=== PATIENT | male | born 1955 | race Caucasian/White ===

== ENCOUNTER 2017-05-24 15:25 | Inpatient (IN) | payer OTHER ==
--- NOTE | 2017-05-24 15:37 | CPEKG ---
Heart Rate: 60 RR Interval: 1000 P-R Interval: 192 QRSD Interval: 94 QT Interval: 388 QTC Interval: 388 P [place]: 27 QRS [place]: 20 T Wave [place]: 43 EKG Severity - NORMAL ECG - EKG Impression: SINUS RHYTHM Electronically Signed By: Vickie Tamayo 24-May-2017 22:43:18
--- NOTE | 2017-05-24 15:50 | EDPHY ---
HPI/HX/ROS/PE/MDM Narrative: CHIEF COMPLAINT: Chest pain, malaise HISTORY OF PRESENT ILLNESS: The patient is a 61 y/o male with a history of atrial fibrillation arriving with his complaining of constant anterior chest pain for the last 24 hours. His pain began while sitting and watching TV. His pain is located in a band from his RUQ to his left anterior chest, but does not radiate elsewhere. He says, "I totally feel like shit and have no energy." He has some associated nausea and has vomited twice. He also experiences oscillation between chills and feeling hot; he denies diaphoresis. He has been taking Tylenol for his pain with only minimal alleviation. Moving around and taking a deep breath worsens his pain. He denies any recent illness or cough, but he thinks he might have the flu. He denies history of blood clots. He does not take an anticoagulant and knows when he is in atrial fibrillation; he denies any recent a-fib episodes. No history of abdominal surgeries. No known gallstones. No fever, shortness of breath, palpitations, flank pain, diarrhea, urinary complaints, headache. REVIEW OF SYSTEMS: Aside from elements discussed in the HPI, a comprehensive 10-point review of systems was reviewed and is negative. PAST MEDICAL HISTORY: Atrial fibrillation (3-4 episodes/year usually associated with over-exertion), hypertension, gored by bull in August 2016 SOCIAL HISTORY: at bedside. Drinks a couple shots of alcohol on the weekends. Nonsmoker. No illicit drugs. Software Quality Tester: Dr. Calvo. VITAL SIGNS: Reviewed by me GENERAL: Overweight gentleman. Appears uncomfortable, in no respiratory distress. Reporting pain across the chest from the right upper quadrant ports the left shoulder. HEENT: Atraumatic. Eyes: No icterus, no injection. Mouth: Slightly dry mucous membranes. Dry lips. No erythema or lesions. Neck: supple with no adenopathy. LUNGS: Clear to auscultation bilaterally, no wheezes, rhonchi or rales. CHEST: No tenderness to palpation on the chest wall. No rash. CARDIAC: Regular rate and rhythm, no rubs, murmurs or gallops. ABDOMEN: Soft, LLQ, RUQ, and epigastric tenderness, nondistended, bowel sounds normal. BACK: No CVA tenderness. EXTREMITIES: No trauma. Trace bilateral lower extremity edema. Range of motion is normal throughout. NEURO: Alert and oriented, grossly nonfocal. SKIN: Warm and dry, no rash. PSYCHIATRIC: Normal mentation, no agitation. Portions of this note were transcribed by a senior medical writer. I personally performed a history, physical exam, medical decision making, and confirmed accuracy of information the transcribed note. ED Course: This is a 61 y/o male with a history of atrial fibrillation who presents with a 24-hour history of chest pain extending in a band from his RUQ to his left anterior chest with associated malaise, nausea, and chills. He has tenderness in his RUQ, epigastrium, and LLQ on palpation, though he does not specifically describe abdominal pain without palpation. His symptoms are more consistent with an infectious cause rather than cardiac. Plan for EKG, chest x-ray, symptom management, IV, and labs including troponin, d-dimer, lipase, and LFTs. PO GI cocktail and 500mL IV NS administered. The 12 lead EKG was interpreted by myself. Sinus rhythm rate 60. See hard copy and/or "tracemaster" electronic copy for interpretation. Chest x-ray: nothing acute. Labs show elevated WBC of 14.8. He is afebrile here. 1625: Patient has had no improvement in symptoms with GI cocktail. His pain is now more localized to his RUQ. Plan for RUQ ultrasound and pain management. 1mg IV Dilaudid and 500mg IV NS administered. Patient is positive for Flu A. Tamiflu ordered US: full of gallstones and debris with minimal biliary wall thickening. Surgery paged. 1807: Consulted with Dr. Ward, surgeon. He will assess patient during admission. Consult with Dr. Haylie Amin. Patient to be admitted to the hospitalist service. His constellation of symptoms and diagnosis are a bit unusual, I believe his chest discomfort is mostly related to biliary colic. [place] [address] which may represent early cholecystitis but has also influenza a positive. Patient will be evaluated by surgery while in the hospital. MDM: Differential diagnoses for the patient's symptom complex was considered including but not limited to biliary colic, GERD, reflux, pneumonia, influenza, cardiac causes, pulmonary embolism. - Data Points Imaging Results: Imaging Impressions Chest X-Ray 05/24/17 15:54 Impression: Minimal airways disease. Otherwise nothing acute. Abdomen Ultrasound 05/24/17 16:30 Impression: 1. Debris and stone filled gallbladder with scattered areas of apparent mild gallbladder wall thickening, without pericholecystic fluid, equivocal for acute cholecystitis. 2. Heterogeneous liver echotexture which could be related to fatty infiltration. Findings discussed with Vickie Tamayo MD, on 05/24/2017 at 18:03. Imaging: Discussed imaging studies w/ general ii farmworker Radiologist, I viewed and interpreted images myself Laboratory Results: Laboratory Results 05/24/17 15:37 05/24/17 15:37 05/24/17 05/24/17 05/24/17 16:31 15:46 15:37 WBC RBC Hgb Hct MCV MCH MCHC RDW Plt Count MPV Neut % (Auto) Lymph % (Auto) [place] % (Auto) Eos % (Auto) Baso % (Auto) Nucleat RBC Rel Count Absolute Neuts (auto) Absolute Lymphs (auto) Absolute Monos (auto) Absolute Eos (auto) Absolute Basos (auto) Absolute Nucleated RBC Immature Gran % Immature Gran # D-Dimer Sodium 132 mEq/L L mEq/L (134-144) Potassium 3.6 mEq/L mEq/L (3.5-5.2) Chloride 95 mEq/L L mEq/L (97-110) Carbon Dioxide 26 mEq/l mEq/l (22-31) Anion Gap 11 mEq/L mEq/L (8-16) BUN 8 mg/dL mg/dL (7-23) Creatinine 0.7 mg/dL mg/dL (0.7-1.3) Estimated GFR > 60 Glucose 91 mg/dL mg/dL (70-100) Calcium 9.6 mg/dL mg/dL (8.5-10.4) Total Bilirubin 1.2 mg/dL mg/dL (0.1-1.4) Conjugated Bilirubin 0.2 mg/dL mg/dL (0.0-0.5) Unconjugated Bilirubin 1.0 mg/dL mg/dL (0.0-1.1) AST 18 IU/L IU/L (17-59) ALT 35 IU/L IU/L (21-72) Alkaline Phosphatase 66 IU/L IU/L (38-126) Troponin I < 0.012 ng/mL ng/mL (0.000-0.034) NT-Pro-B Natriuret Pep 64 pg/mL pg/mL (0-125) Total Protein 7.0 g/dL g/dL (6.3-8.2) Albumin 4.3 g/dL g/dL (3.5-5.0) Lipase 30 IU/L IU/L (23-300) Nasal Influenza A PCR FLU A DETECTED (NEGATIVE) Nasal Influenza B PCR NEGATIVE FOR FLU B (NEGATIVE) 05/24/17 05/24/17 15:37 15:37 WBC 14.82 10^3/uL H 10^3/uL (3.80-9.50) RBC 5.28 10^6/uL 10^6/uL (4.40-6.38) Hgb 16.1 g/dL g/dL (13.7-17.5) Hct 45.5 % % (40.0-51.0) MCV 86.2 fL fL (81.5-99.8) MCH 30.5 pg pg (27.9-34.1) MCHC 35.4 g/dL g/dL (32.4-36.7) RDW 12.7 % % (11.5-15.2) Plt Count 330 10^3/uL 10^3/uL (150-400) MPV 9.0 fL fL (8.7-11.7) Neut % (Auto) 80.4 % H % (39.3-74.2) Lymph % (Auto) 11.7 % L % (15.0-45.0) Bl[place] % (Auto) 6.7 % % (4.5-13.0) Eos % (Auto) 0.3 % L % (0.6-7.6) Baso % (Auto) 0.3 % % (0.3-1.7) Nucleat RBC Rel Count 0.0 % % (0.0-0.2) Absolute Neuts (auto) 11.91 10^3/uL H 10^3/uL (1.70-6.50) Absolute Lymphs (auto) 1.74 10^3/uL 10^3/uL (1.00-3.00) Absolute Monos (auto) 0.99 10^3/uL H 10^3/uL (0.30-0.80) Absolute Eos (auto) 0.05 10^3/uL 10^3/uL (0.03-0.40) Absolute Basos (auto) 0.04 10^3/uL 10^3/uL (0.02-0.10) Absolute Nucleated RBC 0.00 10^3/uL 10^3/uL (0-0.01) Immature Gran % 0.6 % % (0.0-1.1) Immature Gran # 0.09 10^3/uL 10^3/uL (0.00-0.10) D-Dimer 0.27 ug/mLFEU ug/mLFEU (0.00-0.50) Sodium Potassium Chloride Carbon Dioxide Anion Gap BUN Creatinine Estimated GFR Glucose Calcium Total Bilirubin Conjugated Bilirubin Unconjugated Bilirubin AST ALT Alkaline Phosphatase Troponin I NT-Pro-B Natriuret Pep Total Protein Albumin Lipase Nasal Influenza A PCR Nasal Influenza B PCR Medications Given: Sodium Chloride (Ns) 1,000 mls @ 100 mls/hr IV CONT JASON Stop: 11/20/17 21:14 Last Admin: 05/24/17 21:51 Dose: 1,000 mls Oxycodone HCl (Oxycodone Ir) 5 - 10 mg PO Q4 PRN PRN Reason: Pain, Severe Able to Take PO Stop: 06/03/17 21:13 Last Admin: 05/24/17 21:45 Dose: 10 mg Discontinued Medications Acetaminophen (Tylenol) 1,000 mg PO EDNOW ONE Stop: 05/24/17 17:45 Last Admin: 05/24/17 17:54 Dose: 1,000 mg Al Hydroxide/Mg Hydroxide (Maalox Susp) 30 ml PO ONCE ONE Stop: 05/24/17 15:55 Last Admin: 05/24/17 16:01 Dose: 30 ml Hydromorphone HCl (Dilaudid) 1 mg IVP EDNOW ONE Stop: 05/24/17 16:29 Last Admin: 05/24/17 16:35 Dose: 1 mg Hyoscyamine Sulfate (Levsin, Hyomax-Sl) 0.25 mg PO ONCE ONE Stop: 05/24/17 15:55 Last Admin: 05/24/17 16:01 Dose: 0.25 mg Sodium Chloride (Ns) 500 mls @ 1,000 mls/hr IV EDNOW ONE PRN Reason: Protocol Stop: 05/24/17 16:23 Last Admin: 05/24/17 16:01 Dose: 500 mls Sodium Chloride (Ns) 1,000 mls @ 0 mls/hr IV ONCE ONE; Wide Open PRN Reason: Protocol Stop: 05/24/17 17:51 Last Admin: 05/24/17 17:58 Dose: 1,000 mls Ketorolac Tromethamine (Toradol) 30 mg IVP EDNOW ONE Stop: 05/24/17 17:44 Last Admin: 05/24/17 17:54 Dose: 30 mg Lidocaine (Lidocaine 2% Viscous) 15 ml PO ONCE ONE Stop: 05/24/17 15:55 Last Admin: 05/24/17 16:01 Dose: 15 ml Ondansetron HCl (Zofran) 4 mg IVP EDNOW ONE Stop: 05/24/17 16:30 Last Admin: 05/24/17 16:35 Dose: 4 mg Oseltamivir Phosphate (Tamiflu) 75 mg PO EDNOW ONE Stop: 05/24/17 17:52 Last Admin: 05/24/17 17:57 Dose: 75 mg General Time Seen by Provider: 05/24/17 15:33 Initial Vital Signs: Initial Vital Signs Temperature (C) 36.8 C 05/24/17 15:28 Heart Rate 64 05/24/17 15:28 Respiratory Rate 19 05/24/17 15:28 Blood Pressure 149/90 H 05/24/17 15:28 O2 Sat (%) 95 05/24/17 15:28 O2 Delivery Mode Room Air Allergies/Adverse Reactions: No Known Allergies Allergy (Unverified 05/24/17 15:26) Home Medications: Medication Instructions Recorded Aspirin [Aspirin 325 mg (*)] 325 mg PO DAILY 05/24/17 Hydrochlorothiazide 12.5 mg PO DAILY 05/24/17 [Hydrochlorothiazide] Multivitamins [Multivitamin (*)] 1 each PO DAILY 05/24/17 Propafenone HCl [Propafenone HCl] 225 mg PO TID 05/24/17 amLODIPine BESYLATE [Amlodipine 5 mg PO BID 05/24/17 Besylate] Departure - Departure Disposition: [facility] Acute Clinical Impression: RUQ pain, Influenza A, Gallstones, Biliary colic Chest pain Qualifiers: Chest pain type: other chest pain Qualified Code(s): R07.89 - Other chest pain Condition: Fair Report Scribed for: Vickie Tamayo Report Scribed by: Nirali Weldon Date of Report: 05/24/17 Time of Report: 15:50
[2017-05-24] MEDS ORDERED: LIDOCAINE 2% VISCOUS 15 ML UDCUP PO ONE (15:54)
[2017-05-24] MEDS ORDERED: NS 500 ML IV ONE (15:54)
[2017-05-24] MEDS ORDERED: HYOSCYAMINE SULFATE 0.125 MG TAB PO ONE (15:54)
[2017-05-24] MEDS ORDERED: MAG HYDROX/AL HYDROX/SIMETH 30 ML UDCUP PO ONE (15:54)
[2017-05-24 16:00] LABS: % IMMATURE GRANULYOCYTES 0.6 % (0.0-1.1); ABSOLUTE IMMATURE GRANULOCYTES 0.09 10^3/uL (0.00-0.10); ADD DIFF? NO; ADD MORPH? NO; ADD SCAN? NO; ATYPICAL LYMPHOCYTE FLAG 0 (0-99); FRAGMENT RBC FLAG 0 (0-99); HEMATOCRIT 45.5 % (40.0-51.0); HEMOGLOBIN 16.1 g/dL (13.7-17.5); LEFT SHIFT FLG 0 (0-99); LIPEMIA HEMOLYSIS FLAG 90 (0-99); MEAN CELL HEMOGLOBIN 30.5 pg (27.9-34.1); MEAN CELL HEMOGLOBIN CONCENTR. 35.4 g/dL (32.4-36.7); MEAN CELL VOLUME 86.2 fL (81.5-99.8); PLATELET CLUMPS FLAG 10 (0-99); PLATELET COUNT 330 10^3/uL (150-400); RED BLOOD CELL COUNT 5.28 10^6/uL (4.40-6.38); RED CELL DISTRIBUTION WIDTH 12.7 % (11.5-15.2)
[2017-05-24 16:10] LABS: ALANINE AMINOTRANSFERASE 35 IU/L (21-72); ALBUMIN 4.3 g/dL (3.5-5.0); ALKALINE PHOSPHATASE 66 IU/L (38-126); ANION GAP 11 mEq/L (8-16); ASPARTATE AMINOTRANSFERASE 18 IU/L (17-59); BILIRUBIN,TOTAL 1.2 mg/dL (0.1-1.4); BILIRUBIN-CONJUGATED 0.2 mg/dL (0.0-0.5); CALCIUM 9.6 mg/dL (8.5-10.4); CARBON DIOXIDE 26 mEq/l (22-31); CHLORIDE 95 mEq/L (97-110); CREATININE 0.7 mg/dL (0.7-1.3); GLOMERULAR FILTRATION RATE > 60; GLUCOSE 91 mg/dL (70-100); POTASSIUM 3.6 mEq/L (3.5-5.2); SODIUM 132 mEq/L (134-144)
[2017-05-24 16:20] LABS: TROPONIN I < 0.012 ng/mL (0.000-0.034)
[2017-05-24] MEDS ORDERED: HYDROmorphONE/DILAUDID 1 MG/ML INJ IVP ONE (16:28)
[2017-05-24] MEDS ORDERED: ONDANSETRON 4 MG/2 ML VIAL IVP ONE (16:29)
[2017-05-24] MEDS ORDERED: KETOROLAC 30 MG/1 ML SDV IVP ONE (17:43)
[2017-05-24] MEDS ORDERED: ACETAMINOPHEN 500 MG TAB PO ONE (17:44)
[2017-05-24] MEDS ORDERED: NS 1,000 ML IV ONE (17:50)
[2017-05-24] MEDS ORDERED: OSELTAMIVIR PHOSPHATE 75 MG CAP PO ONE (17:51)
[2017-05-24] MEDS ORDERED: ONDANSETRON 4 MG/2 ML VIAL IVP PRN (21:14)
[2017-05-24] MEDS ORDERED: HYDROmorphone HCL/NS/PF 0.4 MG/2 ML SYR IVP PRN (21:14)
[2017-05-24] MEDS ORDERED: PROMETHAZINE HCL 25 MG/ML INJ IVP PRN (21:14)
[2017-05-24] MEDS ORDERED: IBUPROFEN 600 MG TAB PO PRN (21:19)
[2017-05-24] MEDS ORDERED: hydrALAZINE 20 MG/ML VIAL IVP PRN (21:20)
[2017-05-24] MEDS: oxyCODONE IR 5 MG TAB PO PRN (21:45)
--- NOTE | 2017-05-24 21:47 | GHP ---
[f rep st] HISTORY AND PHYSICAL DATE OF ADMISSION: 05/24/2017 CHIEF COMPLAINT: Right upper quadrant and chest pain. HISTORY: The patient is a 61-year-old male who has been having chest pain for the last 24 hours. In itially, it started as a diagonal pain radiating from his right upper quadrant up to his left chest. It gets worse when he deep breathes and moves. The pain has really settled down into his upper abdo men and less in his chest at this time, right greater than left. He is writhing in bed very uncomfor table. Denies any fever or cough. He has recently lost 30-40 pounds intentionally. PAST MEDICAL HISTORY: 1. Atrial fibrillation. 2. Hypertension. MEDICATIONS: Please see computer record for full detailed list. ALLERGIES: No known drug allergies. SOCIAL HISTORY: No smoking. Occasional alcohol. He owns a maintenance company. Lives with his wif e. REVIEW OF SYSTEMS: Complete review of systems obtained. Review of systems negative on constitutiona l, HEENT, GI, pulmonary, cardiovascular, , hematology, skin, muscular, endocrine, psych for positiv es and negatives as in HPI. FAMILY HISTORY: Reviewed, noncontributory to presenting complaint. PHYSICAL EXAMINATION: GENERAL: Well-developed, well-nourished male, in no acute distress. VITAL SI GNS: Temperature 36.8, pulse 65, blood pressure 178/84, saturating 94% on room air. EYES: Normal c onjunctivae. Pupils react to light. ENT: Normal ears, nose. Hearing intact. Normal teeth. Oroph arynx moist. NECK: Trachea midline. No thyromegaly. CHEST: Normal effort. LUNGS: Clear to ausc ultation bilaterally. CARDIOVASCULAR: Regular rhythm. No murmur. No lower extremity edema. ABDOM EN: Soft. Some right upper quadrant tenderness to palpation without hepatosplenomegaly. SKIN: War m, dry, intact. No rash. MUSCULOSKELETAL: No cyanosis or clubbing. Strength 5/5 upper and lower e xtremities. NEUROLOGIC: Cranial nerves intact. Normal sensation to light touch. PSYCH: Alert and oriented x3. Normal affect. Normal judgment and insight. Normal memory. LABORATORY DATA: White count 14.8, hematocrit 45.5, platelets 330. Sodium 132, potassium 3.6, chlor ruddy 95, bicarb 26, BUN 8, creatinine 0.7, glucose 91. LFTs are negative. Troponins negative. D-dim er is negative. Positive for influenza A. EKG viewed by me. My personal interpretation is normal s inus rhythm, no ST-T wave changes. Chest x-ray is negative. Abdominal ultrasound shows gallstones w ith possible gallbladder wall thickening. ASSESSMENT/PLAN: 1. Influenza A. He does not have any classic symptoms for influenza but I wonder if this presenting pain may be pleurisy due to influenza A. We will continue on Tamiflu and prescribe NSAIDs as needed . 2. Gallstones. It is unclear on presentation if his pain is due to gallstones versus pleurisy from influenza. Dr. Ward seen him in consultation. I await Dr. Ward's formal consultation. Although he told the patient he is unlikely to take his gallbladder out during this hospitalization. Could consider HIDA scan if this remains unclear. 3. Hypertension. Continue Norvasc and hydrochlorothiazide. 4. Paroxysmal atrial fibrillation. Continue propafenone and aspirin. 5. Chest pain. I doubt this is cardiac. We will check another troponin in the morning. 6. Obesity. BMI 34. COR STATUS: Full. ADMISSION STATUS: Will admit to observation and reassess tomorrow whether or not he needs further in patient stay. DEEP VENOUS THROMBOSIS PROPHYLAXIS: He is high risk. Will place on subcu Lovenox. /[id number]/MODL
[2017-05-24] MEDS: NS 1,000 ML IV SCH (21:51)
[2017-05-24] MEDS: PROPAFENONE HCL 150 MG TAB PO SCH (21:53)
[2017-05-24] MEDS: CALCIUM CARBONATE 500 MG CHEWABLE TAB PO PRN (22:22)
[2017-05-25] MEDS: oxyCODONE IR 5 MG TAB PO PRN (02:57)
--- NOTE | 2017-05-25 04:58 | GCON ---
[f rep st] CONSULTATION DATE OF CONSULTATION: 05/24/2017 CHIEF COMPLAINT: Chest pain and fatigue. HISTORY OF PRESENT ILLNESS: This is a 61-year-old male who presents to the emergency department with a [id number] history of chest pain and fatigue. He states that the fatigue has been going on for the past few days, and he felt as though he had the flu. The chest pain is new. He describes it as a tightening in the central portion of his chest which radiates to his left shoulder and down into his right abdomen. It is unclear as to what precipitated this, but he stated that the pain has been getting worse over a couple days, which prompted his presentation here. In the emergency department , he had a full cardiac workup and does not appear to be having an acute myocardial infarction, however, was also found to be positive for influenza A and does have a history of AFib, status post ablation procedure, so does, indeed , have a cardiac history, at any rate, has been admitted to the medical service. I was asked to see the patient to weigh in on his abdominal pain. He had an ultrasound which shows a gallbladder which has many layering stones and sludge within it but without any other signs of cholecystitis. On my examination, he complains still of chest tenderness, did try to eat some crackers downstairs, which worsened this pain. He denies nausea or vomiting and has never had episodes like this in the past. PAST MEDICAL HISTORY: Atrial fibrillation, status post ablation procedure, hypertension, and a run-in with a bull in August of this year where it sounds like he was gored. SURGICAL HISTORY: He has had a spinal fusion but denies having any abdominal surgeries in the past. FAMILY HISTORY: Noncontributory. SOCIAL HISTORY: Drinks occasionally, denies illicit drug use, and is . REVIEW OF SYSTEMS: A 10-point comprehensive review was performed and, unless stated above, is otherwise negative. PHYSICAL EXAMINATION: VITAL SIGNS: Temperature 36.9, blood pressure 178/84, heart rate 65, and he is 94% on room air. CONSTITUTIONAL: He is in no apparent distress. He appears comfortable and tired. EYES: His pupils are equal, round, and reactive to light and accommodation. His extraocular movements are intact, and his sclerae are anicteric. EARS, NOSE, MOUTH, AND THROAT: He has dry mucous membranes. His hearing is normal. His ears appear normal, and he has no mucosal ulcers. CARDIOVASCULAR: He appears to be in sinus rhythm. He does not have any murmurs appreciable. RESPIRATORY: He has no respiratory distress. No rales or rhonchi, and he is otherwise clear to auscultation. GI: He has good normoactive bowel sounds. He is soft, minimally tender in the epigastrium without rebound tenderness and a negative Hudson sign. SKIN: Warm, normal color, without rashes. MUSCULOSKELETAL: Full strength. No tenderness. Normal joint range of motion. NEUROLOGIC: He is alert and oriented x3. Again, he is tired. Cranial nerves 2 through 12 appear intact. He has no weakness or numbness. PSYCH: He is interacting appropriately. He does not appear anxious or encephalopathic. LYMPH/HEME/ IMMUNOLOGIC: He has no cervical, groin, or supraclavicular lymphadenopathy. LABORATORIES: Leukocytosis to 14,000 with a left shift. H and H stable at 16 and 45. Chemistries are unremarkable. His liver function enzymes are all within normal limits. His troponin is negative. Ultrasound of the right upper quadrant, the images of which were personally reviewed by me, shows, for the most part, a normal gallbladder wall, but the gallbladder appears to be stone filled. There is no pericholecystic fluid. There are maybe areas were the gallbladder wall is thick but equivocal. He has a positive influenza A. ASSESSMENT AND PLAN: 61-year-old male with chest and abdominal pain, also with active influenza A, possible biliary colic. On my examination, again, the patient continues to describe chest tenderness. His symptoms are not classic cholecystitis or biliary colic symptoms as he has never had issues in the past. They do not seem to be precipitated by food, and most of the symptoms seem to be cardiac in nature, although it does not appear he is having an acute myocardial infarction. At this juncture, he has multiple other problems which trump his biliary colic as I do not appreciate any signs for cholecystitis clinically at this time. First of all, I think the patient needs a completed cardiac workup. Second of all, a lot of these symptoms could be explained by his acute influenza infection, and I would like him to heal appropriately from this. My plan would be to have the medical service clear him from a cardiac standpoint, and if he feels better and he can eat, would plan to discharge him home so he can convalesce from his influenza with followup with me. I do anticipate that he either has had or will have biliary colic-type symptoms in the future given his ultrasound but do not appreciate any signs that would require him to have urgent cholecystectomy in the next 24 hours, so ideally he would heal from his influenza before I take him to the operating room, which could happen within the next few weeks. /[id number]/MODL MTDD
[2017-05-25 05:55] LABS: % IMMATURE GRANULYOCYTES 0.5 % (0.0-1.1); ABSOLUTE IMMATURE GRANULOCYTES 0.08 10^3/uL (0.00-0.10); ADD DIFF? NO; ADD MORPH? NO; ADD SCAN? NO; ATYPICAL LYMPHOCYTE FLAG 0 (0-99); FRAGMENT RBC FLAG 0 (0-99); HEMATOCRIT 42.7 % (40.0-51.0); HEMOGLOBIN 15.2 g/dL (13.7-17.5); LEFT SHIFT FLG 0 (0-99); LIPEMIA HEMOLYSIS FLAG 90 (0-99); MEAN CELL HEMOGLOBIN 30.8 pg (27.9-34.1); MEAN CELL HEMOGLOBIN CONCENTR. 35.6 g/dL (32.4-36.7); MEAN CELL VOLUME 86.6 fL (81.5-99.8); MEAN PLATELET VOLUME 9.2 fL (8.7-11.7); PLATELET CLUMPS FLAG 40 (0-99); PLATELET COUNT 290 10^3/uL (150-400); RED BLOOD CELL COUNT 4.93 10^6/uL (4.40-6.38); RED CELL DISTRIBUTION WIDTH 12.7 % (11.5-15.2)
[2017-05-25 06:07] LABS: ANION GAP 8 mEq/L (8-16); CALCIUM 8.7 mg/dL (8.5-10.4); CARBON DIOXIDE 26 mEq/l (22-31); CHLORIDE 97 mEq/L (97-110); CREATININE 0.6 mg/dL (0.7-1.3); GLOMERULAR FILTRATION RATE > 60; GLUCOSE 117 mg/dL (70-100); POTASSIUM 3.9 mEq/L (3.5-5.2); SODIUM 131 mEq/L (134-144)
[2017-05-25 06:17] LABS: TROPONIN I < 0.012 ng/mL (0.000-0.034)
--- NOTE | 2017-05-25 07:32 | SOAPPROG ---
SOAP Progress Note Assessment/Plan: Assessment/Plan: 61yo M c influenza, CP, biliary colic - has some abdominal pain today which is new. Described as muscular pain and he feels like he "slept on it wrong" - overall looks better. Would attempt to PO challenge and if tolerates would dc and follow up as outpatient for outpatient bruce when convalesces from flu infection 05/25/17 07:30 Subjective: had a good night, chest pain appears to have resolved Objective: Vital Signs Temp Pulse Resp BP Pulse Ox 36.9 C 69 30 H 145/84 H 93 05/25/17 07:23 05/25/17 07:23 05/25/17 07:23 05/25/17 07:23 05/25/17 07:23 Laboratory Results 05/25/17 05:25 05/25/17 05:25 05/24/17 05/25/17 05/26/17 05:59 05:59 05:59 Intake Total 2100 Output Total 400 Balance 1700 ICD10 Worksheet Patient Problems: Problems Problem Status Onset Biliary colic Acute Chest pain Acute Gallstones Acute Influenza A Acute RUQ pain Acute
[2017-05-25] MEDS: NS 1,000 ML IV SCH (07:53)
[2017-05-25] MEDS: HYDROCHLOROTHIAZIDE 25 MG TAB PO SCH (07:54)
[2017-05-25] MEDS: PROPAFENONE HCL 150 MG TAB PO SCH ×3 (07:55→21:03)
[2017-05-25] MEDS: amLODIPine BESYLATE 5 MG TAB PO SCH ×2 (07:56→21:03)
[2017-05-25] MEDS: ASPIRIN 325 MG TAB PO SCH (07:56)
[2017-05-25] MEDS: ENOXAPARIN 40 MG/0.4 ML SYR SC SCH (07:57)
[2017-05-25] MEDS: OSELTAMIVIR PHOSPHATE 75 MG CAP PO SCH ×2 (07:57→16:53)
--- NOTE | 2017-05-25 08:54 | CPEKG ---
Heart Rate: 70 RR Interval: 857 P-R Interval: 176 QRSD Interval: 86 QT Interval: 348 QTC Interval: 376 P [place]: 35 QRS [place]: 29 T Wave [place]: 27 EKG Severity - NORMAL ECG - EKG Impression: SINUS RHYTHM Electronically Signed By: Jose Chavez 26-May-2017 13:13:16
--- NOTE | 2017-05-25 11:11 | ASMTCASEMG ---
Living Arrangements What is your living Answers: With Spouse arrangement? Who do you live with? Type Of Residence What kind of residence do Answers: House you live in? Discharge Plan Comments Coordination Status Comments Notes: Patient is a 61yo male who was admitted for chest pain and abdominal pain. Most likely abdominal pain is from influenza A and/or gallstones. No therapies ordered at this time. D/C needs TBD. CM will follow. Date Signed: 05/25/2017 11:11 AM Electronically Signed By:Gisselle Parekh LCSW
[2017-05-25] MEDS: ACETAMINOPHEN 325 MG TAB PO PRN (12:56)
--- NOTE | 2017-05-25 13:24 | HOSPPROG ---
Hospitalist Progress Note Assessment/Plan: Patient is a 61-year-old male who is been having chest pain for approximately 24 hr. It gets worse when he deep breathes and moves. Today is my 1st encounter with the patient. Chart reviewed. * influenza a -continue Tamiflu and supportive care * leukocytosis -secondary to this *Hyponatremia -eating and drinking well -repeat labs in a.m. * gallstones with biliary colic -further followup with surgery once he resolves the flu -patient is extremely tender in ruq area/ patient has some guarding -appreciate surgery following * paroxysmal atrial fibrillation -on aspirin and propafenone * obesity with a BMI of 34 * chest pain -trops negative x2 -this has resolved -in sinus rhythm/ has a hx of afib *Plan: Patient require another midnight stay. He is extremely tenderness right upper quadrant area. In addition he has ongoing headaches and elevated white blood cell count. This will make him inpatient stay. Will get repeat labs in the morning Subjective: Ray isn't feeling well today. Objective: Vital Signs Temp Pulse Resp BP Pulse Ox 36.6 C 75 28 H 143/80 H 94 05/25/17 12:00 05/25/17 12:00 05/25/17 12:00 05/25/17 12:00 05/25/17 12:00 Laboratory Results 05/25/17 05:25 05/25/17 05:25 05/24/17 05/25/17 05/26/17 05:59 05:59 05:59 Intake Total 2100 Output Total 400 Balance 1700 - Physical Exam Constitutional: obese, uncomfortable, No not in pain (ruq) Eyes: PERRL Ears, Nose, Mouth, Throat: hearing normal Cardiovascular: regular rate and rhythym Respiratory: no respiratory distress Gastrointestinal: normoactive bowel sounds, tenderness (ruq), guarding Skin: warm Musculoskeletal: full muscle strength Neurologic: AAOx3 Psychiatric: interacting appropriately ICD10 Worksheet Patient Problems: Problems Problem Status Onset Biliary colic Acute Chest pain Acute Gallstones Acute Influenza A Acute RUQ pain Acute
--- NOTE | 2017-05-25 15:56 | PDMN ---
Medical Necessity Medical necessity: GRG systemic condition : influenza A -1 day: influenza with CP, leukocytosis, hyponatremia, with gallstones and biliary colic, -pt is extremely tender in RUQ, /guarding, BARNES, repeat Labs in am -cont care > 2 midnights.
[2017-05-26 06:21] LABS: % IMMATURE GRANULYOCYTES 0.5 % (0.0-1.1); ABSOLUTE IMMATURE GRANULOCYTES 0.07 10^3/uL (0.00-0.10); ADD DIFF? NO; ADD MORPH? NO; ADD SCAN? NO; ATYPICAL LYMPHOCYTE FLAG 0 (0-99); FRAGMENT RBC FLAG 0 (0-99); HEMATOCRIT 42.1 % (40.0-51.0); HEMOGLOBIN 14.6 g/dL (13.7-17.5); LEFT SHIFT FLG 0 (0-99); LIPEMIA HEMOLYSIS FLAG 90 (0-99); MEAN CELL HEMOGLOBIN 30.6 pg (27.9-34.1); MEAN CELL HEMOGLOBIN CONCENTR. 34.7 g/dL (32.4-36.7); MEAN CELL VOLUME 88.3 fL (81.5-99.8); MEAN PLATELET VOLUME 9.4 fL (8.7-11.7); PLATELET CLUMPS FLAG 10 (0-99); PLATELET COUNT 274 10^3/uL (150-400); RED BLOOD CELL COUNT 4.77 10^6/uL (4.40-6.38)
[2017-05-26 06:45] LABS: ALANINE AMINOTRANSFERASE 39 IU/L (21-72); ALBUMIN 3.2 g/dL (3.5-5.0); ALKALINE PHOSPHATASE 59 IU/L (38-126); ANION GAP 10 mEq/L (8-16); ASPARTATE AMINOTRANSFERASE 19 IU/L (17-59); BILIRUBIN,TOTAL 1.9 mg/dL (0.1-1.4); CALCIUM 8.8 mg/dL (8.5-10.4); CARBON DIOXIDE 29 mEq/l (22-31); CHLORIDE 98 mEq/L (97-110); CREATININE 0.8 mg/dL (0.7-1.3); GLOMERULAR FILTRATION RATE > 60; GLUCOSE 88 mg/dL (70-100); POTASSIUM 3.5 mEq/L (3.5-5.2); SODIUM 137 mEq/L (134-144); TOTAL PROTEIN 5.5 g/dL (6.3-8.2)
[2017-05-26] MEDS: HYDROCHLOROTHIAZIDE 25 MG TAB PO SCH (08:34)
[2017-05-26] MEDS: ASPIRIN 325 MG TAB PO SCH (08:34)
[2017-05-26] MEDS: amLODIPine BESYLATE 5 MG TAB PO SCH ×2 (08:35→21:04)
[2017-05-26] MEDS: PROPAFENONE HCL 150 MG TAB PO SCH ×3 (08:35→21:04)
[2017-05-26] MEDS: OSELTAMIVIR PHOSPHATE 75 MG CAP PO SCH ×2 (08:36→17:30)
[2017-05-26] MEDS: ENOXAPARIN 40 MG/0.4 ML SYR SC SCH (08:36)
--- NOTE | 2017-05-26 12:49 | HOSPPROG ---
Hospitalist Progress Note Assessment/Plan: Patient is a 61-year-old male who had been having chest pain for approximately 24 hr. It gets worse when he deep breathes and moves. Today is my 1st encounter with the patient. Chart reviewed. * influenza a -continue Tamiflu and supportive care -looks much better * leukocytosis -multifactorial -stable *Hyponatremia -eating and drinking well -resolved * gallstones with biliary colic -further followup with surgery once he resolves the flu -appreciate surgery following -possible intervention if surgery decides * paroxysmal atrial fibrillation -on aspirin and propafenone * obesity with a BMI of 34 * chest pain -trops negative x2 -this has resolved -in sinus rhythm/ has a hx of afib *Plan: Await surgery recs Subjective: Up in the chair. Feels well. Objective: Vital Signs Temp Pulse Resp BP Pulse Ox 36.5 C 74 20 117/70 93 05/26/17 11:31 05/26/17 11:31 05/26/17 11:31 05/26/17 11:31 05/26/17 11:31 Laboratory Results 05/26/17 05:40 05/26/17 05:40 05/25/17 05/26/17 05/27/17 05:59 05:59 05:59 Intake Total 1000 Output Total 1400 Balance -400 - Physical Exam Constitutional: appears nourished, not in pain, obese Eyes: PERRL, anicteric sclera, EOMI Ears, Nose, Mouth, Throat: moist mucous membranes, hearing normal, ears appear normal Cardiovascular: No JVD, No tachycardia, No edema Respiratory: no respiratory distress, no rales or rhonchi, reduced air movement Gastrointestinal: tenderness, No ascites, No guarding Skin: warm, normal color, No erythema Musculoskeletal: normal joint ROM, no joint effusions, generalized weakness Neurologic: AAOx3 Psychiatric: interacting appropriately, not anxious, not encephalopathic ICD10 Worksheet Patient Problems: Problems Problem Status Onset Chest pain Acute RUQ pain Acute Influenza A Acute Gallstones Acute Biliary colic Acute
--- NOTE | 2017-05-26 12:57 | SOAPPROG ---
DAGOBERTO Progress Note Assessment/Plan: Assessment/Plan: 61yo M c influenza, CP, biliary colic - RUQ pain persists, although maybe a little better today. Still think that he would benefit from lap bruce this admission. - Will stop by this afternoon and if he is side seam tender will plan for OR tomorrow if he is amenable 05/25/17 07:30 05/26/17 12:56 Subjective: still a little tender but overall feeling better Objective: Vital Signs Temp Pulse Resp BP Pulse Ox 36.5 C 74 20 117/70 93 05/26/17 11:31 05/26/17 11:31 05/26/17 11:31 05/26/17 11:31 05/26/17 11:31 Laboratory Results 05/26/17 05:40 05/26/17 05:40 05/25/17 05/26/17 05/27/17 05:59 05:59 05:59 Intake Total 1000 Output Total 1400 Balance -400 ICD10 Worksheet Patient Problems: Problems Problem Status Onset Biliary colic Acute Chest pain Acute Gallstones Acute Influenza A Acute RUQ pain Acute
[2017-05-27] MEDS: ASPIRIN 325 MG TAB PO SCH (09:32)
[2017-05-27] MEDS: ENOXAPARIN 40 MG/0.4 ML SYR SC SCH (09:33)
[2017-05-27] MEDS: OSELTAMIVIR PHOSPHATE 75 MG CAP PO SCH ×2 (09:43→18:17)
[2017-05-27] MEDS: HYDROCHLOROTHIAZIDE 25 MG TAB PO SCH (09:43)
[2017-05-27] MEDS: amLODIPine BESYLATE 5 MG TAB PO SCH ×2 (09:43→21:35)
[2017-05-27] MEDS: PROPAFENONE HCL 150 MG TAB PO SCH ×3 (09:48→21:35)
[2017-05-27] MEDS ORDERED: LR 1,000 ML IV ONE (13:11)
[2017-05-27] MEDS ORDERED: ceFAZolin 2 GM/SWFI 2 GM/20 ML SYR IVP ONE (13:36)
--- NOTE | 2017-05-27 13:36 | PDHPUP ---
History & Physical Update H&P update statement: This history and physical update is based on an assessment of the patient which was completed after admission or registration (within 24 hours), but prior to the surgery/procedure. H&P update: H&P reviewed & patient examined, no change in patient's condition since H&P completed
--- NOTE | 2017-05-27 13:54 | HOSPPROG ---
Hospitalist Progress Note Assessment/Plan: Patient is a 61-year-old male who had been having chest pain for approximately 24 hr. It gets worse when he deep breathes and moves. * influenza a -continue Tamiflu and supportive care -looks much better * leukocytosis -multifactorial -stable *Hyponatremia -eating and drinking well -resolved * gallstones with biliary colic -further followup with surgery once he resolves the flu -appreciate surgery following -possible intervention if surgery decides * paroxysmal atrial fibrillation -on aspirin and propafenone * obesity with a BMI of 34 * chest pain -trops negative x2 -this has resolved -in sinus rhythm/ has a hx of afib *Plan: to OR today possible home 1-2 days if doing better Subjective: Feels well. Waiting for surgery. Objective: Vital Signs Temp Pulse Resp BP Pulse Ox 36.9 C 65 16 103/69 93 05/27/17 11:38 05/27/17 11:38 05/27/17 11:38 05/27/17 11:38 05/27/17 11:38 Laboratory Results 05/26/17 05:40 05/26/17 05:40 05/26/17 05/27/17 05/28/17 05:59 05:59 05:59 Intake Total 1000 450 Output Total 1400 Balance -400 450 - Physical Exam Constitutional: no apparent distress, not in pain Eyes: PERRL, anicteric sclera Ears, Nose, Mouth, Throat: moist mucous membranes, hearing normal Cardiovascular: No JVD, No edema Respiratory: no respiratory distress, reduced air movement Gastrointestinal: No tenderness, No ascites Skin: warm, normal color Musculoskeletal: full muscle strength, no joint effusions Neurologic: AAOx3 Psychiatric: interacting appropriately, not anxious, not encephalopathic ICD10 Worksheet Patient Problems: Problems Problem Status Onset Chest pain Acute RUQ pain Acute Influenza A Acute Gallstones Acute Biliary colic Acute
[2017-05-27] MEDS ORDERED: BUPIVACAINE 0.25% 30 ML SDV ONE (13:58)
[2017-05-27] MEDS ORDERED: IOPAMIDOL (ISOVUE-M 300) 15 ML VIAL ONE (13:59)
[2017-05-27] MEDS ORDERED: PROPOFOL 200 MG/20 ML VIAL ONE ×2 (14:04)
[2017-05-27] MEDS ORDERED: fentaNYL 250 MCG/5 ML INJ ONE (14:04)
[2017-05-27] MEDS ORDERED: ROCURONIUM 50 MG/5 ML VIAL ONE ×2 (14:06→15:46)
[2017-05-27] MEDS ORDERED: LIDOCAINE 2% 5 ML SDV ONE (14:07)
[2017-05-27] MEDS ORDERED: ONDANSETRON 4 MG/2 ML VIAL ONE (14:08)
[2017-05-27] MEDS ORDERED: SUGAMMADEX SODIUM 200 MG/2 ML VIAL IVP ONE (14:08)
[2017-05-27] MEDS ORDERED: KETOROLAC 30 MG/1 ML SDV ONE (14:08)
[2017-05-27] MEDS ORDERED: DEXAMETHASONE 4 MG/ML VIAL ONE (14:08)
[2017-05-27] MEDS ORDERED: MIDAZOLAM 2 MG/2 ML VIAL ONE (14:09)
[2017-05-27] MEDS ORDERED: MIDAZOLAM 2 MG/2 ML VIAL IVP ONE (14:15)
--- NOTE | 2017-05-27 14:17 | PDANEPAE ---
ANE History of Present Illness epigastric/abd pain; w/u negative for cardiac etiology ANE Past Medical History - Cardiovascular History Hx Hypertension: Yes Hx Arrhythmias: Yes Hx Chest Pain: No Hx Coronary Artery / Peripheral Vascular Disease: No Hx CHF / Valvular Disease: No Hx Palpitations: No - Pulmonary History Hx COPD: No Hx Asthma/Reactive Airway Disease: No Hx Recent Upper Respiratory Infection: No Hx Oxygen in Use at Home: No Hx Sleep Apnea: No Sleep Apnea Screening Result - Last Documented: Positive - Endocrine History Hx Diabetes: No Hypothyroid: No Obesity: yes, moderate - Chronic Pain History Chronic Pain: No ANE Review of Systems Review of systems is: negative Review of Systems: - Exercise capacity Exercise capacity: >=4 METS ANE Patient History - Allergies Allergies/Adverse Reactions: No Known Allergies Allergy (Unverified 05/24/17 15:26) - Home Medications Home medications: home medication list seen and reviewed Home Medications: Aspirin [Aspirin 325 mg (*)] 325 mg PO DAILY 05/24/17 [Last Taken 05/24/17] Hydrochlorothiazide [Hydrochlorothiazide] 12.5 mg PO DAILY 05/24/17 [Last Taken 05/24/17] Multivitamins [Multivitamin (*)] 1 each PO DAILY 05/24/17 [Last Taken 05/24/17] Propafenone HCl [Propafenone HCl] 225 mg PO TID 05/24/17 [Last Taken 05/24/17 12 :00] amLODIPine BESYLATE [Amlodipine Besylate] 5 mg PO BID 05/24/17 [Last Taken 05/24] - NPO status NPO Since - Liquids (Date): 05/27/17 NPO Since - Liquids (Time): 00:05 NPO Since - Solids (Date): 05/27/17 NPO Since - Solids (Time): 00:05 - Smoking Hx Smoking Status: Never smoked ANE Labs/Vital Signs - Labs Result Diagrams: 05/26/17 05:40 05/26/17 05:40 - Vital Signs Blood Pressure: 103/69 Heart Rate: 65 Respiratory Rate: 16 O2 Sat (%): 93 Height: 175.26 cm Weight: 106.594 kg ANE Physical Exam - Airway Neck exam: FROM Mallampati Score: Class 2 Mouth exam: normal dental/mouth exam - Pulmonary Pulmonary: no respiratory distress - Cardiovascular Cardiovascular: regular rate and rhythym - ASA Status ASA Status: III ANE Anesthesia Plan Anesthesia Plan: general endotracheal anesthesia Specialized Airway: video laryngoscope
[2017-05-27] MEDS ORDERED: OXYCODONE/APAP 5/325 TAB PO PRN (14:50)
[2017-05-27] MEDS ORDERED: NALOXONE HCL 0.4 MG/ML INJ IVP PRN (14:50)
[2017-05-27] MEDS ORDERED: ALBUTEROL 3 ML DEYVIAL IH PRN (14:50)
[2017-05-27] MEDS ORDERED: HYDROCODONE/APAP 5/325 TAB PO PRN (14:50)
[2017-05-27] MEDS ORDERED: ACETAMINOPHEN 500 MG TAB PO PRN (14:50)
[2017-05-27] MEDS ORDERED: fentaNYL 100 MCG/2 ML INJ IVP PRN (14:50)
[2017-05-27] MEDS ORDERED: ONDANSETRON 4 MG/2 ML VIAL IVP PRN (14:50)
[2017-05-27] MEDS ORDERED: PROMETHAZINE HCL 25 MG/ML INJ IVP PRN (14:50)
[2017-05-27] MEDS ORDERED: METOCLOPRAMIDE 10 MG/2 ML VIAL IVP PRN (14:50)
[2017-05-27] MEDS ORDERED: fentaNYL 100 MCG/2 ML INJ ONE (15:33)
--- NOTE | 2017-05-27 16:36 | POSTOPPROG ---
Post Op Note Date of Operation: 05/27/17 Surgeon: Siva Ward Video Game Tester: Zenon Anesthesiologist: Leonie Anesthesia: GET(General Endotracheal) Pre-op Diagnosis: Cholecystitis Post-op Diagnosis: gangrenous cholecystitis Procedure: Lap bruce Findings: very inflamed wall, many stones within GB Inf/Abcess present in the surg proc area at time of surgery?: No EBL: 50-100 Total fluids administered: 2000cc washout Drains: Ranjit Urbina Specimen(s): GB
[2017-05-27] MEDS ORDERED: HYDROmorphONE/DILAUDID 1 MG/ML INJ ONE (16:50)
[2017-05-27] MEDS: HYDROmorphONE/DILAUDID 1 MG/ML INJ IVP PRN ×4 (16:58→17:37)
--- NOTE | 2017-05-27 17:20 | POSTANESTH ---
Post Anesthetic Evaluation Cardiovascular Status: Normal, Stable Respiratory Status: Normal, Stable Level of Consciousness/Mental Status: Can Participate in Eval Pain Control: Adequate, Prn Tx Ordered Nausea/Vomiting Control: Adequate, Prn Tx Ordered Complications Possibly Related to Anesthesia: None Noted
[2017-05-27] MEDS: oxyCODONE IR 5 MG TAB PO PRN ×2 (18:23→22:40)
--- NOTE | 2017-05-27 18:46 | GOP ---
[f rep st] OPERATIVE REPORT DATE OF OPERATION: 05/27/2017 SURGEON: Siva Ward MD WATER MECHANIC: Zenon ANESTHESIA: General endotracheal. ANESTHESIOLOGIST: Stephan Hadley MD PREOPERATIVE DIAGNOSIS: Acute cholecystitis. POSTOPERATIVE DIAGNOSIS: Acute gangrenous cholecystitis. PROCEDURE PERFORMED: Laparoscopic cholecystectomy. FINDINGS: Inflamed, edematous gallbladder wall. Very difficult dissection. Stapled cystic duct at infundibulum with SAMEERA 45 blue load. SPECIMENS: Gallbladder. ESTIMATED BLOOD LOSS: 50 cc. DESCRIPTION OF PROCEDURE: The patient was greeted in the preoperative suite. Once again, risks, jamaal efits, and alternatives were discussed. He was then brought back to the operative suite, placed on t he OR table in the supine position. After all anesthesia machines, including SCDs, were on and funct ioning, World Health Organization time-out was performed. Antibiotics were given on-call to the oper ating room. After successful induction of general anesthesia, the patient's abdomen was prepped and draped in the typical sterile fashion. I entered the abdomen via an infraumbilical cutdown through w hich the Veress needle was passed. I achieved pneumoperitoneum to 15 mmHg CO2, which was well tolera lukasz by the patient. Through this, I inserted a Visiport 10 mm. Once successfully in the abdomen, I inserted 3 additional 5 mm trocars, 1 in the subxiphoid, 2 in the right upper quadrant. I was unable initially to retract the dome of the gallbladder over the liver edge. I successfully drained it and I ended up making a small cholecystotomy while doing this. I did not see any stones spill from this . After draining this, I successfully retracted it upwards; however, the infundibulum of the [facility] dder was significantly inflamed and edematous. I instead decided to do a top-down approach and start ing at the base of the gallbladder headed toward the infundibulum. I took the gallbladder off the li torri bed using the Harmonic Scalpel. Once in the infundibulum and I had successfully taken the cystic artery with the Harmonic Scalpel, I attempted to skeletonize the remainder of the structures there. This was difficult given the friability and bleeding. I upsized my subxiphoid port. I identified t he common bile duct deep to my dissection and successfully amputated the gallbladder off the cystic d uct using a single fire of the 45 blue load stapler. I then removed the gallbladder. After removal, I turned my attention toward the cystic duct stump. It did not appear completely intact. Using bot h an 0 PDS and 0 Vicryl Endoloop, I successfully closed the remainder of the cystic duct. I then irr igated the right upper quadrant with 2 L normal saline noting clear effluent in the suction canister. Hemostasis was good within the liver bed. I did use Geremias in the liver bed to ensure that hemosta sis was appropriate. I then placed a 10-Spanish flat CARIN within the gallbladder bed, brought it out th rough my right-most port site and attached it to the skin with a nylon suture. I then infiltrated lo lucio anesthesia into all port sites. Once again, I inspected my Endoloops which were in appropriate p osition and the liver bed which was hemostatic. I then evacuated my pneumoperitoneum. The subxiphoi d port which I had to upsize for my stapler, I successfully closed with a running 0 Vicryl stitch not ing excellent fascial reapproximation. In the same fashion, I closed the infraumbilical port site as well. Skin was then closed with running 4-0 Monocryl over which Mastisol and Steri-Strips were plac ed. The patient was then extubated in the operative suite and taken to the PACU in satisfactory cond ition. DRAINS: Ten-Spanish flat CARIN in right upper quadrant. COUNTS: All counts were reported as correct x2. /[id number]/MODL
[2017-05-27] MEDS: CALCIUM CARBONATE 500 MG CHEWABLE TAB PO PRN (21:35)
[2017-05-28 05:12] VITALS: RESP 16
[2017-05-28] MEDS: ACETAMINOPHEN 325 MG TAB PO PRN ×2 (05:30→13:13)
[2017-05-28] MEDS: CALCIUM CARBONATE 500 MG CHEWABLE TAB PO PRN (05:30)
[2017-05-28] MEDS: PROPAFENONE HCL 150 MG TAB PO SCH (08:58)
[2017-05-28] MEDS: ASPIRIN 325 MG TAB PO SCH (08:59)
[2017-05-28] MEDS: ENOXAPARIN 40 MG/0.4 ML SYR SC SCH (08:59)
[2017-05-28] MEDS: amLODIPine BESYLATE 5 MG TAB PO SCH (08:59)
[2017-05-28] MEDS: HYDROCHLOROTHIAZIDE 25 MG TAB PO SCH (08:59)
[2017-05-28] MEDS: OSELTAMIVIR PHOSPHATE 75 MG CAP PO SCH (09:00)
--- NOTE | 2017-05-28 10:28 | HOSPPROG ---
Hospitalist Progress Note Assessment/Plan: Patient is a 61-year-old male who is been having chest pain for approximately 24 hr. It gets worse when he deep breathes and moves. * influenza a -continue Tamiflu and supportive care * leukocytosis -secondary to this *Hyponatremia -eating and drinking well -repeat labs in a.m. * acute gangrenous cholecystitis -status post laparoscopic cholecystectomy -patient doing well this morning * paroxysmal atrial fibrillation -on aspirin and propafenone * obesity with a BMI of 34 * chest pain -trops negative x2 -this has resolved -in sinus rhythm/ has a hx of afib *Plan: Will discuss with surgery about possible discharge today. Will also asked them about treating with antibiotics. The patient does not appear acutely ill at this time and looks markedly improved compared to when I saw him the other day Subjective: Ray said he is feeling fine today. Has no complaints. Objective: Vital Signs Temp Pulse Resp BP Pulse Ox 36.4 C 72 16 150/80 H 89 L 05/28/17 07:52 05/28/17 07:52 05/28/17 07:52 05/28/17 07:52 05/28/17 07:52 Laboratory Results 05/26/17 05:40 05/26/17 05:40 05/27/17 05/28/17 05/29/17 05:59 05:59 05:59 Intake Total 450 1550 Output Total 250 20 Balance 450 1300 -20 - Physical Exam Constitutional: appears nourished, not in pain, obese Eyes: PERRL Ears, Nose, Mouth, Throat: hearing normal Cardiovascular: regular rate and rhythym Respiratory: no respiratory distress Gastrointestinal: normoactive bowel sounds Skin: warm Musculoskeletal: full muscle strength Neurologic: AAOx3 Psychiatric: interacting appropriately, flat affect ICD10 Worksheet Patient Problems: Problems Problem Status Onset Biliary colic Acute Chest pain Acute Gallstones Acute Influenza A Acute RUQ pain Acute
[2017-05-28 11:53] VITALS: BP 109/77; PULSE 93; TEMP 98.4; O2SAT 93
--- NOTE | 2017-05-28 16:06 | GDS ---
[f rep st] DISCHARGE SUMMARY DISCHARGE DIAGNOSES: 1. Influenza A. 2. Leukocytosis secondary to this. 3. Acute gangrenous cholecystitis. 4. Hyponatremia. 5. Paroxysmal atrial fibrillation. 6. Obesity with a BMI of 34. 7. An episode of chest pain. CONSULTATION: Siva Ward MD. HISTORY: Briefly, Alexys Molina is a 61-year-old gentleman who presented to the emergency room with ches t pain for 24 hours. It started as a diagonal pain radiating from his right upper quadrant to his le ft chest area and was worse when he deep breathed. He was checked for influenza and noted to be posi tive. Also, he was having significant pain. It was noted that he had gallstones. He was evaluated by Dr. Ward, who ultimately did surgery, removing his gallbladder that was gangrenous. Through out his stay he improved. He will be discharged home and further follow up with Dr. Siva Ward in the outpatient setting. HOSPITAL COURSE: 1. Influenza A. He will be on Tamiflu for 4 more doses. 2. Leukocytosis. Improved. 3. Acute gangrenous cholecystitis. He is status post laparoscopic cholecystectomy. He is doing torri y well since having surgery. 4. Hyponatremia. Resolved. 5. Paroxysmal atrial fibrillation. He is on aspirin and propafenone .. 6. Obesity. He has a BMI of 34. 7. Chest pain. None further. Troponin x2 were checked. They were stable. DISCHARGE CONDITION: Stable. Blood pressure is 109/77, heart rate is 93, respiratory rate is 16, O2 saturations on room air 93%, temperature is 36.9 Celsius. MEDICATIONS AT DISCHARGE: Please see the EMR. DISCHARGE INSTRUCTIONS: 1. Will leave the drain in his abdomen and follow up with Dr. Ward, who will remove this drain . 2. Do not drink or drive while he is on the oxy, and to note that it causes constipation, to stay on a stool softener. 3. No heavier lifting than 5 pounds until cleared by the surgeon. 4. Take the Tamiflu for 4 more doses. Greater than 30 minutes discharging and coordinating care. /[id number]/MODL
--- NOTE | 2017-05-28 17:26 | ASDISCHSUM ---
Discharge Information Plan Status:Home with No Needs Medically Cleared to Leave: Discharge Date:05/28/2017 04:08 PM CM D/C Disposition:Home, Routine, Self-Care ADT D/C Disposition:Home, Routine, Self-Care Projected Discharge Date:05/28/2017 04:08 PM Transportation at D/C:Family Discharge Delay Reason: Follow-Up Date:05/28/2017 04:08 PM Discharge Slot: Final Diagnosis: Placement Information Patient Contact Information Contact Name:FABRICE Relationship: Address:[address] City:[place] Phone: [facility]/Zip Code:[place] [address] Email: Financial Information Financial Class:HMO and PPO Plans Primary Plan Desc:[facility] [employer] Primary Plan Number:[id number] Secondary Plan Desc: Secondary Plan Number: Assessment Information [facility] Initial CM Assessment Living Arrangements What is your living Answers: With Spouse arrangement? Who do you live with? Type Of Residence What kind of residence do Answers: House you live in? Discharge Plan Comments Coordination Status Comments Notes: Patient is a 61yo male who was admitted for chest pain and abdominal pain. Most likely abdominal pain is from influenza A and/or gallstones. No therapies ordered at this time. D/C needs TBD. CM will follow. Date Signed: 05/25/2017 11:11 AM Electronically Signed By:Gisselle Parekh LCSW Case Management Discharge Plan Note Case Management Discharge Discharge Order Complete? Answers: Yes Patient to Obtain Answers: via Family Medications Transportation Arranged Answers: Family/Friends Discharge Comments Notes: Pt. d/cing today independently to his Sybil. Date Signed: 05/28/2017 03:08 PM Electronically Signed By:Marti Coronel LCSW Intervention Information
== END 2017-05-28 16:08 | disposition home or self-care (01) | DRG 418 ==
LOC: F3E 19:30 → OBSVTOIN 05-25 15:42
PROVIDERS: ADMIT Internal Medicine; ATTEND Internal Medicine
PROC: 0FT44ZZ Resection of Gallbladder, Percutaneous Endoscopic Approach (ICD-10-PCS; principal; 2017-05-27 13:15)
DX: K80.00 Calculus of gallbladder with acute cholecystitis without obstruction (principal); J10.1 Influenza due to other identified influenza virus with other respiratory manifestations; E87.1 Hypo-osmolality and hyponatremia; I48.0 Paroxysmal atrial fibrillation; Z79.82 Long term (current) use of aspirin; E66.09 Other obesity due to excess calories; Z68.34 Body mass index [BMI] 34.0-34.9, adult; Z98.1 Arthrodesis status
CPT/HCPCS: 96374; G0378; J0171; J0690; J1100; J1170; J1650; J1885; J2250; J2405; J2704; J3010; Q9967